=== PATIENT | female | born 1965 | race Caucasian/White ===

== ENCOUNTER 2020-03-07 20:34 | Emergency (ER) | payer OTHER ==
[~2020-03-07] VITALS: Ht 165.1 cm; Wt 77.1 kg
[2020-03-07] MEDS ORDERED: PRAVASTATIN SOD10 MG PO (20:46)
== END 2020-03-08 01:27 | disposition home or self-care (01) ==
LOC: ER 20:34
DX: K21.9 Gastro-esophageal reflux disease without esophagitis (principal)

== ENCOUNTER 2020-09-08 15:27 | Outpatient (CLI) | payer OTHER ==
[~2020-09-08 15:27] MED LIST: PRAVASTATIN SOD10 MG PO
== END 2020-09-08 16:10 | disposition home or self-care (01) ==
LOC: OFIC 805 15:27
PROVIDERS: ATTEND Otolaryngology Otology & Neurotology
DX: H92.03 Otalgia, bilateral (principal); H61.23 Impacted cerumen, bilateral